=== PATIENT | male | born 1965 | race Two or more races ===

== ENCOUNTER 2018-09-02 07:40 | Day surgery (SDC) | payer BC ==
[2018-09-02 08:09] VITALS: BMI 33.2
[2018-09-02 08:17] VITALS: TEMP 97.8
[2018-09-02] MEDS ORDERED: Lactated Ringer's 500 ML IV ONE (09:06)
[2018-09-02] MEDS ORDERED: Propofol 10 mg/ml Inj (20 ML) ONE (09:09)
--- NOTE | 2018-09-02 09:11 | CP.SDSHP ---
Same Day Surgery H & P - History Proposed Procedure: endoscopy Pre-Op Diagnosis: dysphagia - Previous Medical/Surgical History Cardiac: Hypertension - Allergies Allergies: Allergies No Known Allergies Allergy (Verified 09/02/18 08:09) - Physical Exam Vital Signs: Vital Signs 09/02/18 08:10 Temperature 97.8 F Pulse Rate 72 Respiratory 16 Rate Blood Pressure 183/57 H O2 Sat by Pulse 98 Oximetry Mental Status: Alert & Oriented x3 Neuro: WNL Heart: WNL Lungs: WNL GI: WNL - {Optional Preform as Required} Abdomen: WNL - Impression Impression: dysphagia Pt. Evaluated Today:Candidate for Anesthesia & Procedure: Yes - Date & Time Date: 09/02/18 Time: 09:11 Short Stay Discharge - Short Stay Discharge Admitting Diagnosis/Reason for Visit: DYSPHAGIA Disposition: HOME/ ROUTINE
[2018-09-02] MEDS ORDERED: Lidocaine Hydrochloride 5 ML INJ ONE (09:12)
[2018-09-02 10:02] VITALS: RESP 16
[2018-09-02 10:35] VITALS: BP 120/67; PULSE 70; O2SAT 98
== END 2018-09-02 10:30 | disposition home or self-care (01) ==
LOC: C.ENDO 07:40
PROVIDERS: ATTEND Internal Medicine Gastroenterology
DX: R13.10 Dysphagia, unspecified (principal); K20.9 Esophagitis, unspecified; K29.70 Gastritis, unspecified, without bleeding
CPT/HCPCS: 43239; 88305; 88312; 88342; J2704; J7120